=== PATIENT | female | born 1980 | race Hispanic/Latino ===

== ENCOUNTER 2018-09-24 00:13 | Inpatient (IN) | payer SELFPAY ==
[2018-09-24] MEDS ORDERED: Adacel (T-DAP) 0.5 ML SYRINGE ONE (00:33)
[2018-09-24] MEDS ORDERED: Morphine 4 MG/ML VIAL ONE ×2 (00:49→03:32)
[2018-09-24] MEDS ORDERED: CEFAZOLIN 2 GM/50 ML BAG ONE (01:08)
[2018-09-24 01:14] LABS: #Basophils 0.1 thou/uL (0.0-0.2); #Eosinphils 0.1 thou/uL (0.0-0.7); #Lymphocytes 2.4 thou/uL (1.20-3.40); #Monocytes 0.4 thou/uL (0.11-0.59); #Neutrophils 2.2 thou/uL (1.40-6.50); %Basophils 1.9 % (0.0-1.0); %Eosinophils 1.6 % (0.0-10.0); %Lymphocytes 45.9 % (21.0-51.0); %Monocytes 8.1 % (0.0-10.0); %Neutrophils 42.4 % (42.0-75.0); Hemoglobin 13.6 g/dL (12.0-16.0); Mean Corpuscular HGB CONC 34.2 g/dL (32.0-36.0); Mean Corpuscular Hemoglobin 31.5 pg (27.0-31.0); Mean Corpuscular Volume 92.2 fL (78.0-98.0); Mean Platelet Volume 8.5 fL (7.4-10.4); Platelet Count 193 thou/uL (130-400); RBC Distribution Width 12.3 % (11.5-14.5); Red Blood Cell (RBC) Count 4.32 mill/uL (4.20-5.40); White Blood Cell (WBC) Count 5.2 thou/uL (4.8-10.8)
[2018-09-24 01:20] LABS: BHCG - Serum Negative (NEGATIVE); Pregs Control Background? CLEAR/WHITE (CLR/WHITE); Pregs Control Bar Appear? YES (CONTROL BAR)
[2018-09-24 01:34] LABS: ALT (SGPT) 20 U/L (8-55); AST (SGOT) 28 U/L (5-34); Albumin 4.7 g/dL (3.5-5.0); Alcohol 211 mg/dL (Less than 10); Alkaline Phosphatase 58 U/L (40-150); Anion Gap 15 mmol/L (10-20); BUN (Urea Nitrogen) 10 mg/dL (7.0-18.7); Bilirubin, Total 0.2 mg/dL (0.2-1.2); Calc. Creatinine Clearance 0 mL/min (70-130); Calcium 9.9 mg/dL (7.8-10.44); Carbon Dioxide 24 mmol/L (22-29); Chloride 106 mmol/L (98-107); Estimated GFR-MDRD Greater than 90; Globulin 3.1 g/dL (2.4-3.5); Glucose 89 mg/dL (70-105); Potassium 4.1 mmol/L (3.5-5.1); Protein, Total 7.8 g/dL (6.0-8.3); Sodium 141 mmol/L (136-145)
--- NOTE | 2018-09-24 03:25 | HP ---
ATTENDING SURGEON: Dr. Ott. CONSULTATION: Orthopedics, Dr. Ivan. HISTORY OF PRESENT ILLNESS: The patient is a 37-year-old woman, who was walking, when she missed a step, fell, hit a curb with her right knee. The patient had immediate notice of pain and a large laceration to her knee. Her brought her to the emergency department via POV, where she underwent evaluation, examination was noted to have an approximately 10 cm laceration to her right anterior knee with suspected joint involvement, which time Dr. Gaspar spoke with Dr. Ivan, who requested the patient that will be admitted to the hospital, made n.p.o. in preparation for irrigation and debridement in the morning. The patient denied any loss of consciousness or any other complaints other than her right knee. ALLERGIES: NAPROXEN. THE PATIENT ACTUALLY STATES IT IS ALL NSAIDS RELATED TO GASTRITIS. CURRENT MEDICATIONS: None. PAST MEDICAL HISTORY: Gastritis. PAST SURGICAL HISTORY: Two ectopics and x2. SOCIAL HISTORY: The patient is , lives at home with family. She smokes "two cigarettes per day". Denies drug use and drinks socially to include this evening. FAMILY MEDICAL HISTORY: Diabetes. REVIEW OF SYSTEMS: A 10-point review of systems is negative as otherwise stated. PHYSICAL EXAMINATION: VITAL SIGNS: Blood pressure 115/84, heart rate 83, respirations 16, oxygen saturation 100% on room air, and temperature is 98.6. GENERAL: The patient is resting comfortably in the ER bed. She is awake, alert, and oriented x3. [place] Coma Scale is 15. The patient is primarily [place] speaking only. Her was able to assist in translation. HEENT: Head is normocephalic and atraumatic. Eyes, extraocular motion intact. PERRLA bilaterally. Ears are atraumatic without discharge. Nose atraumatic without discharge. Oropharynx is clear. NECK: Nontender. Trachea is midline. No JVD. CHEST: Clear to auscultation with good inspiratory and expiratory effort. HEART: Regular rate and rhythm. ABDOMEN: Soft, flat, nontender with active bowel sounds. PELVIS: Stable. EXTREMITIES: Neurovascularly intact x4. Right lower extremity is dressed with a gauze dressing with Billy wrap overlying it. It has been irrigated and dressed. Again by Dr. Gaspar's report, the patient has a large 10 x 12 open avulsion with visible bone and soft tissue near the joint. BACK: Atraumatic and nontender. LABORATORY RESULTS: White blood cell count 5.2, hemoglobin 13.6, hematocrit 39.9, and platelets 193. Sodium 141, potassium 4.1, chloride 106, CO2 of 24, BUN 10, creatinine 0.72, and glucose 89. LFTs are unremarkable. Serum HCG is negative. Blood alcohol is 211. RADIOGRAPHIC FINDINGS: Four views of the right knee show no fracture, dislocation, subluxations. Gas is noted in the soft tissues. ASSESSMENT: 1. Status post fall. 2. Laceration to right knee, complex, possible open joint. 3. Pain secondary to acute trauma. PLAN: Plan will be to admit the patient to the surgical floor. Make her n.p.o. She will have IV pain control, fluid hydration, pulmonary toilet, gastritis, and mechanical VTE prophylaxis with plans for irrigation, debridement, and probable wound closure later this morning. The evaluation, examination, laboratory, and radiographic findings will be discussed with Dr. Ott after this dictation. Again, this case was discussed with Dr. Ivan by Dr. Gaspar. Job ID: [id number]
[2018-09-24] MEDS ORDERED: Ondansetron PF 4 MG/2 ML Vial IVP PRN ×2 (04:20→13:06)
[2018-09-24] MEDS ORDERED: hydrALAZINE 20 MG/ML VIAL SLOW IVP PRN (04:20)
[2018-09-24] MEDS ORDERED: Ondansetron ODT 4 MG TAB PO PRN (04:20)
[2018-09-24] MEDS ORDERED: Morphine 4 MG/ML VIAL SLOW IVP PRN ×4 (04:20→13:04)
[2018-09-24] MEDS ORDERED: Dextrose 50% Abboject 50 ML SYRINGE SLOW IVP PRN (04:20)
[2018-09-24] MEDS ORDERED: Dextrose 5% in Water 1,000 ML IV PRN (04:20)
[2018-09-24 04:28] VITALS: BMI 23.3
[2018-09-24] MEDS ORDERED: Acetaminophen 1,000 MG in Premix Bag 1 BAG IVPB SCH ×2 (04:30→12:00)
[2018-09-24] MEDS: Sodium Chloride 0.9% 1,000 ML IV SCH ×2 (04:53→12:01)
--- NOTE | 2018-09-24 07:50 | RAD ---
RIGHT KNEE 4 VIEWS: Date: 09/24/18 HISTORY: Right knee pain. FINDINGS/IMPRESSION: No fracture or dislocation is seen. A small exostosis is noted in the proximal tibia. A soft tissue d efect is seen laterally. No radiopaque foreign body is identified. POS: [facility]
[2018-09-24 08:02] LABS: #Lymphocytes 1.6 thou/uL (1.20-3.40); #Monocytes 0.4 thou/uL (0.11-0.59); #Neutrophils 3.2 thou/uL (1.40-6.50); %Basophils 0.8 % (0.0-1.0); %Eosinophils 0.9 % (0.0-10.0); %Lymphocytes 30.3 % (21.0-51.0); %Monocytes 8.3 % (0.0-10.0); %Neutrophils 59.8 % (42.0-75.0); Hemoglobin 11.6 g/dL (12.0-16.0); Mean Corpuscular HGB CONC 33.9 g/dL (32.0-36.0); Mean Corpuscular Hemoglobin 31.4 pg (27.0-31.0); Mean Corpuscular Volume 92.5 fL (78.0-98.0); Mean Platelet Volume 8.2 fL (7.4-10.4); Platelet Count 176 thou/uL (130-400); RBC Distribution Width 12.2 % (11.5-14.5); Red Blood Cell (RBC) Count 3.71 mill/uL (4.20-5.40); White Blood Cell (WBC) Count 5.3 thou/uL (4.8-10.8)
[2018-09-24 08:21] LABS: Anion Gap 14 mmol/L (10-20); BUN (Urea Nitrogen) 7 mg/dL (7.0-18.7); Calc. Creatinine Clearance 130 mL/min (70-130); Calcium 8.7 mg/dL (7.8-10.44); Carbon Dioxide 21 mmol/L (22-29); Chloride 111 mmol/L (98-107); Estimated GFR-MDRD Greater than 90; Glucose 87 mg/dL (70-105); Potassium 3.7 mmol/L (3.5-5.1); Sodium 142 mmol/L (136-145)
[2018-09-24] MEDS ORDERED: Famotidine/PF 20 mg/2ml Vial SLOW IVP SCH (09:00)
[2018-09-24] MEDS ORDERED: Fentanyl 100 MCG/2 ML VIAL ONE ×2 (10:37→12:09)
[2018-09-24] MEDS ORDERED: Midazolam HCl 2 mg/2 ml Vial ONE (10:38)
[2018-09-24] MEDS ORDERED: Bupivacaine HCl 0.5%/Epinephrine 1:200,000/PF 30 ml Vial ONE (10:39)
[2018-09-24] MEDS ORDERED: Sodium Chloride 0.9% 10 ML ONE (10:39)
--- NOTE | 2018-09-24 12:49 | OP ---
DATE OF PROCEDURE: 09/24/2018 PREOPERATIVE DIAGNOSIS: Laceration in the anterior aspect of the right knee, possibly extending into the right knee joint. POSTOPERATIVE DIAGNOSIS: Laceration in the anterior aspect of the right knee, possibly extending into the right knee joint. PROCEDURES PERFORMED: 1. Arthroscopic irrigation and debridement of the right knee joint. 2. Irrigation and debridement of 10 cm laceration in the anterior aspect of the right knee with primary closure. ANESTHESIA: General. DESCRIPTION OF PROCEDURE: The patient was given preoperative IV antibiotics, taken to the operating room, placed in supine position. Satisfactory general anesthesia was performed. Right lower extremity was sterilely prepped and draped in usual fashion. After exsanguination, tourniquet was raised to 250 mmHg. The patient had a curvilinear laceration approximately 10 cm in length over the anterior aspect of the right knee extended down to the lower portion of the patella and proximal aspect of the patellar tendon. A small incision was made in the laceration into the knee joint, and the knee joint was copiously irrigated. The laceration was then copiously irrigated with the Pulsavac. The wound was very clean. It was then closed using 0 Vicryl for the fat and subcutaneous tissue, and skin was closed with 3-0 Rapide. The wound was then infiltrated with 30 mL of 0.5% Marcaine with epinephrine. Sterile dressing was applied. Tourniquet was released. The patient was awakened, extubated, and transferred to recovery room in stable condition. ESTIMATED BLOOD LOSS: None. COMPLICATIONS: None. TOURNIQUET TIME: 33 minutes. DISCHARGE MEDICATIONS: The patient will be discharged later today on Bactrim DS one p.o. b.i.d., #14; Tylenol No. 4 one every 6 hours as needed for pain, #50. FOLLOWUP: I advised the patient to follow up with me in 1 week, but she is going to go back to her home country, I believe, in [place], where she will follow up with her primary care doctor. Job ID: [id number]
[2018-09-24 13:07] VITALS: BP 132/82; TEMP 98.5
[2018-09-24] MEDS ORDERED: HYDROcodone/Acetaminophen 7.5/325 mg Tablet PO PRN ×2 (13:08)
[2018-09-24] MEDS ORDERED: Acetaminophen 500 MG TAB PO PRN ×2 (13:11)
[2018-09-24] MEDS ORDERED: CEFAZOLIN 1 GM in Sodium Chloride 0.9% 100 ML IVPB SCH (14:00)
--- NOTE | 2018-09-24 22:43 | HP ---
This is an addendum to the H and P dictated by Troy Reddy, trauma PA, for full details, please see his H and P, and the details of which I have confirmed with the patient and her . In short, Ms. Vo is a 37-year-old woman, who stumbled and fell, hitting her knee on a curb. She suffered a large laceration with exposed bone and possible joint involvement. This was washed out in the emergency room and a sterile dressing placed and Orthopedics put her on the schedule to take her to the operating room for a washout and repair today. She has been on scheduled antibiotics and states that her pain is not bad unless she moves her leg. She has normal sensation and movement distal to her injury. No significant past medical or surgical history. Complete examination was performed at the bedside personally. No other abnormalities found on examination. The dressing was not taken down since it was placed after washout in the emergency room. She does have a small scrape on her left knee, which is minimal. ASSESSMENT: Right knee laceration reportedly down to the bone with possible joint involvement. The patient is going to the operating room today with Orthopedic Surgery. She will likely be able to be discharged home following this procedure. No other injuries were identified. Job ID: [id number]
--- NOTE | 2018-09-25 14:29 | DIS ---
DATE OF ADMISSION: 09/24/2018 DATE OF DISCHARGE: 09/24/2018 ADMISSION DIAGNOSES: 1. Status post ground level fall. 2. Large complex laceration to right knee with suspected joint involvement. CONSULTATIONS: Orthopedics, Dr. Ivan. PROCEDURES: 1. Arthroscopic irrigation and debridement of the right knee joint. 2. Irrigation and debridement of 10-cm laceration in the anterior aspect of the right knee with primary closure. SUMMARY: The patient is a 37-year-old woman, who was walking, when she missed a step, fell, striking her right knee on a curb. She was brought to the emergency department via POV, where she underwent evaluation and examination and was noted to have the above injuries. The following morning, she will be taken to the operating room to undergo the above procedure, which she tolerated well. Her pain was controlled. She was ambulating with crutches after evaluation by Physical Therapy and she was able to be discharged home. She will follow up with Dr. Ivan in 2 weeks or sooner as needed. She may follow up with the Trauma Clinic if needed. Job ID: [id number]
--- NOTE | 2018-09-27 15:35 | EKG ---
Test Reason : Blood Pressure : / mmHG Vent. Rate : 082 BPM Atrial Rate : 082 BPM P-R Int : 126 ms QRS Dur : 080 ms QT Int : 376 ms P-R-T Axes : 057 060 045 degrees QTc Int : 439 ms Normal sinus rhythm Normal ECG Confirmed by SIRENA BETTS ([id number]), editor continuity and script SERGIO GRACIA ([id number]) on 09/27/2018 3:34:55 PM Referred By: Confirmed By:SIRENA BETTS
== END 2018-09-24 16:15 | disposition home or self-care (01) | DRG 581 ==
LOC: ERS 00:13 → SJJU 01:00 → OBSVTOIN 01:00
PROVIDERS: ADMIT Surgery; ATTEND Surgery
PROC: 0JQN0ZZ Repair Right Lower Leg Subcutaneous Tissue and Fascia, Open Approach (ICD-10-PCS; principal; 2018-09-24)
PROC: 3E1U38Z Irrigation of Joints using Irrigating Substance, Percutaneous Approach (ICD-10-PCS; 2018-09-24)
DX: S81.011A Laceration without foreign body, right knee, initial encounter (principal); S83.8X1A Sprain of other specified parts of right knee, initial encounter; G89.11 Acute pain due to trauma; F17.210 Nicotine dependence, cigarettes, uncomplicated; W18.39XA Other fall on same level, initial encounter
CPT/HCPCS: 36415; 80053; 80307; 84703; 85025; 90471; 90715; 93005; 96365; 96375; 96376; G8978-GP-CJ; G8979-GP-CJ; G8980-GP-CJ; J0131; J0670; J0690; J2250; J2270; J2405; J3010; S0028